=== PATIENT | female | born 1970 | race Caucasian/White ===

== ENCOUNTER 2019-11-17 17:43 | Emergency (ER) | payer OTHER ==
[~2019-11-17] VITALS: Ht 162.6 cm; Wt 72.6 kg
[~2019-11-17 17:43] MED LIST: ALBU0.098 IH; FEXO30TA PO; [UNRECOGNIZED DRUG - CODE] PO
[2019-11-17 18:05] VITALS: BP 161/69
--- NOTE | 2019-11-17 18:12 | NUR ---
PT INSTRUCTED TO WAIT IN TENT
--- NOTE | 2019-11-17 18:37 | NUR ---
PT SEEN AND ASSESSED BY KYLE LOZADA
[2019-11-17 18:38] VITALS: BP 161/69
--- NOTE | 2019-11-17 18:38 | NUR ---
Patient discharged with v/s stable. Written and verbal after care instructions given and explained. Patient alert, oriented and verbalized understanding of instructions. Ambulatory with steady gait. All questions addressed prior to discharge. ID band removed. Patient advised to follow up with PMD. Rx of DOXYCYCLINE 100MG AND PROMETHAZINE6.25MG given. Patient educated on indication of medication including possible reaction and side effects. Opportunity to ask questions provided and answered.
== END 2019-11-17 18:38 | disposition home or self-care (01) ==
LOC: MED 17:43
DX: J18.9 Pneumonia, unspecified organism (principal); R05 Cough; F41.9 Anxiety disorder, unspecified; I47.1 Supraventricular tachycardia; Z79.899 Other long term (current) drug therapy; Z98.890 Other specified postprocedural states
CPT/HCPCS: 99283

== ENCOUNTER 2021-09-21 19:57 | Emergency (ER) | payer OTHER ==
[~2021-09-21] VITALS: Ht 157.5 cm; Wt 74.8 kg
[2021-09-21 20:31] VITALS: BP 124/73
--- NOTE | 2021-09-21 20:39 | NUR ---
PT TAKEN TO BED 3.
--- NOTE | 2021-09-21 21:14 | NUR ---
Dr. Cabrera examming patient.
[2021-09-21] MEDS ORDERED: KETOROLAC 30 MG/ML VIAL IM ONE (21:30)
--- NOTE | 2021-09-21 21:30 | NUR ---
51 Y/O FEMALE BIBS FROM HOME, C/O PAIN X2 MONTHS. PT STATAES HER PAIN IS ALL OVER HER WHOLE BODY BUT TODAY IT IS CENTERED ON HER RIGHT SHOULDER, NECK AND INTO HER HEAD. PT DENIES CAUSEY, COUGH, FEVER, CP, OR SOB. PT STATES SHE HAS APPOINTMENT TO SEE A SPECIALIST BUT CANNOT STAND THE PAIN TODAY. FULL RANGE OF MOTION; CMS INTACT; PT STATES IT "FEELS INFLAMMED." UNLABORED BREATHING, AMBULATORY; A/OX4, GCS-15. PT SEATED IN BED WITH HOB RAISED, BED IN LOWEST SETTING, AND RAIL UP X1. HX: BICUSPIS, MURMUR, SVT, ARTHRITIS NKA MEDS: IBUPROFEN, ATENELOL, AMBIEN
--- NOTE | 2021-09-21 21:45 | NUR ---
XRAY AT BEDSIDE
[2021-09-21 22:25] VITALS: BP 122/70
--- NOTE | 2021-09-21 22:25 | NUR ---
Patient discharged with v/s stable. Written and verbal after care instructions given and explained. Patient verbalized understanding. Ambulatory with steady gait. All questions addressed prior to discharge. Advised to follow up with PMD. VSS, A/OX4, UNLABORED BREATHING, AMBULATORY, AND CALM DEMEANOR.
== END 2021-09-21 22:25 | disposition home or self-care (01) ==
LOC: MED 19:57
DX: M25.511 Pain in right shoulder (principal); J45.909 Unspecified asthma, uncomplicated; Z79.899 Other long term (current) drug therapy
CPT/HCPCS: 73030; 96372; 99283; J1885; Q0092

== ENCOUNTER 2022-12-12 13:47 | Emergency (ER) | payer OTHER ==
[~2022-12-12] VITALS: Ht 154.9 cm; Wt 70.3 kg
[2022-12-12 14:29] VITALS: BP 131/74; PULSE 56; RESP 20; TEMP 97.1; O2SAT 96
[2022-12-12] MEDS ORDERED: CIPR750T5 PO (15:19)
[2022-12-12 15:52] VITALS: BP 129/72; PULSE 61; RESP 18; TEMP 97.7; O2SAT 99
== END 2022-12-12 15:22 | disposition home or self-care (01) ==
LOC: MED 13:47
DX: H61.001 Unspecified perichondritis of right external ear (principal); R22.0 Localized swelling, mass and lump, head; R03.0 Elevated blood-pressure reading, without diagnosis of hypertension; J45.909 Unspecified asthma, uncomplicated; Z79.899 Other long term (current) drug therapy; Z79.2 Long term (current) use of antibiotics
CPT/HCPCS: 99283